=== PATIENT | female | born 1940 | race Caucasian/White ===

== ENCOUNTER 2024-09-25 08:40 | Day surgery (SDC) | payer MEDICARE, OTHER ==
[~2024-09-25] VITALS: Ht 154.9 cm; Wt 65.0 kg
[~2024-09-25 08:40] MED LIST: AMLO5TAB66 PO; ASPI-1444 PO; ATOR40TA71 PO; FURO20TA5 PO; KETOROLAC TROMETHAMINE 0.5% 5 ML OPHTHALMIC SOLUTION ONE; LEVO50TA11 PO; LISI20TA24 PO; METF-445 PO; MOXIFLOXACIN HCL 0.5% 3 ML OPHTHALMIC SOLUTION ONE; NITR0.4T50 SL; PHENYLEPHRINE HCL 2.5% 2 ML OPHTHALMIC SOLUTION ONE; TETRACAINE HCL/PF 0.5% 4 ML OPHTHALMIC SOLUTION ONE; TROPICAMIDE 1% 2 ML OPHTHALMIC SOLUTION ONE
[2024-09-25] MEDS: KETOROLAC TROMETHAMINE 0.5% 5 ML OPHTHALMIC SOLUTION OD SCH (09:26)
[2024-09-25] MEDS: TROPICAMIDE 1% 2 ML OPHTHALMIC SOLUTION OD SCH (09:26)
[2024-09-25] MEDS: PHENYLEPHRINE HCL 2.5% 2 ML OPHTHALMIC SOLUTION OD SCH (09:28)
[2024-09-25] MEDS: MOXIFLOXACIN HCL 0.5% 3 ML OPHTHALMIC SOLUTION OD SCH (09:29)
[2024-09-25] MEDS: RINGERS SOLUTION,LACTATED 500 ML IV ONE (09:47)
[2024-09-25] MEDS: TETRACAINE HCL/PF 0.5% 4 ML OPHTHALMIC SOLUTION ONE (10:05)
[2024-09-25 10:06] LABS: GLUCOMETER DEV NAME(LOC) SDS.; GLUCOSE,POINT OF CARE 125 MG/DL (70-110)
[2024-09-25] MEDS: BALANCED SALT 15 ML OPHTHALMIC IRRIG.SOLN ONE (10:10)
[2024-09-25] MEDS: LIDOCAINE/PF 1% 2 ML VIAL ONE (10:10)
[2024-09-25] MEDS: EPINEPHrine 1:1,000 [1 MG/ML] VIAL ONE (10:10)
[2024-09-25] MEDS: POVIDONE-IODINE 5% 30 ML OPHTHALMIC SOLUTION ONE (10:10)
== END 2024-09-25 12:00 | disposition home or self-care (01) ==
LOC: SURGERY 08:40
PROVIDERS: ATTEND Ophthalmology
DX: E11.36 Type 2 diabetes mellitus with diabetic cataract (principal); H25.11 Age-related nuclear cataract, right eye; I10 Essential (primary) hypertension; Z79.4 Long term (current) use of insulin
CPT/HCPCS: 66984; 82962; 93005; J0171; J3490; V2632